=== PATIENT | male | born 1995 | race Caucasian/White ===

== ENCOUNTER 2019-02-01 09:34 | Emergency (ER) | payer OTHER ==
--- NOTE | 2019-02-01 09:44 | ER Report ---
History and Physical Time Seen By MD: 09:43 HPI/ROS CHIEF COMPLAINT: Right-sided abdominal pain HISTORY OF PRESENT ILLNESS: Patient is a 23-year-old male here with complaints of right-sided abdominal pain with history of appendectomy. Patient complains of nausea, vomiting several episodes since 2:30 this morning. Patient reports constant cramping pain in the right side of the abdomen without distention. Denies blood in the stools or urine. Patient is afebrile, hemodynamically stable at time of evaluation. Patient did attempt to drink water however he subsequently vomited after every attempt. REVIEW OF SYSTEMS: Constitutional: No fever, no chills. Eyes: No discharge. ENT: No sore throat. Cardiovascular: No chest pain, no palpitations. Respiratory: No cough, no shortness of breath. Gastrointestinal: + Right sided abdominal pain, + nausea and vomiting. Genitourinary: No hematuria. Musculoskeletal: No back pain. Skin: No rashes. Neurological: No headache. Allergies: Coded Allergies: No Known Drug Allergies (Unverified , 02/01/19) Home Meds Active Scripts Ondansetron 4 Mg Odt (ONDANSETRON 4 MG ODT) 4 Mg Tab.rapdis, 4 MG PO ONCE, #30 TAB Prov:JOCY SLOAN DO 02/01/19 Constitutional Vital Sign - Last 24 Hours 02/01/19 02/01/19 02/01/19 02/01/19 09:45 09:46 09:54 09:59 Temp 97.9 Pulse 100 98 86 B/P (MAP) 127/91 127/91 (103) Pulse Ox 93 90 97 O2 Delivery Room Air 02/01/19 02/01/19 02/01/19 02/01/19 10:00 10:04 10:09 10:14 Pulse 83 84 82 B/P (MAP) 123/112 (116) Pulse Ox 100 97 99 02/01/19 02/01/19 02/01/19 02/01/19 10:19 10:24 10:29 10:30 Pulse 76 74 85 B/P (MAP) 113/76 (88) Pulse Ox 97 95 97 02/01/19 02/01/19 02/01/19 02/01/19 10:34 10:39 10:49 10:54 Pulse 86 86 88 89 Pulse Ox 95 94 91 90 02/01/19 02/01/19 02/01/19 02/01/19 10:59 11:04 11:30 12:00 Pulse ??? B/P (MAP) 123/68 (86) 115/75 (88) Pulse Ox 92 Physical Exam General Appearance: The patient is alert, has no immediate need for airway protection and no signs of toxicity. Uncomfortable appearing Eyes: Pupils equal and round no pallor or injection. ENT, Mouth: Mucous membranes are moist. Respiratory: There are no retractions, lungs are clear to auscultation. Cardiovascular: Regular rate and rhythm. Gastrointestinal: Abdomen is soft and + tender in the right upper and right middle abdomen without rebound or guarding Neurological: No focal neurological deficits Skin: Warm and dry, no rashes. Musculoskeletal: Neck is supple non tender. Extremities are nontender, nonswollen and have full range of motion. DIFFERENTIAL DIAGNOSIS: After history and physical exam differential diagnosis was considered for abdominal pain including but not limited to appendicitis, cholecystitis, gastritis and urinary tract infection. Medical Decision Making Data Points Result Diagram: 02/01/19 1013 02/01/19 1013 Laboratory Hematology Test 02/01/19 10:13 02/01/19 12:22 Red Blood Count 6.17 M/uL (4.00-5.60) Mean Corpuscular Volume 85.1 fL (80.0-96.0) Mean Corpuscular Hemoglobin 28.9 pg (26.0-33.0) Mean Corpuscular Hemoglobin Concent 33.9 g/dL (32.0-36.0) Red Cell Distribution Width 12.9 % (11.5-14.5) Mean Platelet Volume 8.0 fL (7.2-11.1) Neutrophils (%) (Auto) 92.6 % (39.4-72.5) Lymphocytes (%) (Auto) 2.7 % (17.6-49.6) Monocytes (%) (Auto) 4.0 % (4.1-12.4) Eosinophils (%) (Auto) 0.5 % (0.4-6.7) Basophils (%) (Auto) 0.2 % (0.3-1.4) Nucleated RBC Relative Count (auto) 0.1 /100WBC Neutrophils # (Auto) 13.4 K/uL (2.0-7.4) Lymphocytes # (Auto) 0.4 K/uL (1.3-3.6) Monocytes # (Auto) 0.6 K/uL (0.3-1.0) Eosinophils # (Auto) 0.1 K/uL (0.0-0.5) Basophils # (Auto) 0.0 K/uL (0.0-0.1) Nucleated RBC Absolute Count (auto) 0.02 K/uL Sodium Level 141 mmol/L (137-145) Potassium Level 4.3 mmol/L (3.5-5.0) Chloride Level 105 mmol/L (98-107) Carbon Dioxide Level 27 mmol/L (22-30) Blood Urea Nitrogen 14 mg/dl (9-21) Creatinine 1.30 mg/dl (0.66-1.25) Glomerular Filtration Rate Calc > 60.0 Random Glucose 103 mg/dl (75-110) Calcium Level 10.2 mg/dl (8.4-10.2) Total Bilirubin 0.8 mg/dl (0.2-1.3) Aspartate Amino Transf (AST/SGOT) 31 U/L (0-35) Alanine Aminotransferase (ALT/SGPT) 35 U/L (0-56) Alkaline Phosphatase 86 U/L (0-126) C-Reactive Protein 0.7 mg/dl (<1.0) Total Protein 8.4 g/dl (6.3-8.2) Albumin 4.9 g/dl (3.5-5.0) Lipase 148 U/L (23-300) Urine Color Straw Urine Clarity Clear Urine pH 6.0 pH (4.8-9.5) Urine Specific [place] >1.060 Urine Protein Negative mg/dL (NEGATIVE) Urine Glucose (UA) Negative mg/dL (NEGATIVE) Urine Ketones 20 mg/dL (NEGATIVE) Urine Blood Negative (NEGATIVE) Urine Nitrite Negative (NEGATIVE) Urine Bilirubin Negative (NEGATIVE) Urine Urobilinogen Negative mg/dL (0.2-1.9) Urine Leukocyte Esterase Negative (NEGATIVE) Urine RBC <1 /HPF (0-2/HPF) Urine WBC <1 /HPF (0-5/HPF) Urine Squamous Epithelial Cells None /LPF (</=FEW) Urine Bacteria Negative /HPF (NONE-FEW) Urine Mucus None /HPF (NONE-FEW) Chemistry Test 5/11/19 10:13 02/01/19 12:22 White Blood Count 14.5 k/uL (4.5-11.0) Red Blood Count 6.17 M/uL (4.00-5.60) Hemoglobin 17.8 g/dL (14.0-18.0) Hematocrit 52.5 % (42.0-52.0) Mean Corpuscular Volume 85.1 fL (80.0-96.0) Mean Corpuscular Hemoglobin 28.9 pg (26.0-33.0) Mean Corpuscular Hemoglobin Concent 33.9 g/dL (32.0-36.0) Red Cell Distribution Width 12.9 % (11.5-14.5) Platelet Count 249 K/uL (150-450) Mean Platelet Volume 8.0 fL (7.2-11.1) Neutrophils (%) (Auto) 92.6 % (39.4-72.5) Lymphocytes (%) (Auto) 2.7 % (17.6-49.6) Monocytes (%) (Auto) 4.0 % (4.1-12.4) Eosinophils (%) (Auto) 0.5 % (0.4-6.7) Basophils (%) (Auto) 0.2 % (0.3-1.4) Nucleated RBC Relative Count (auto) 0.1 /100WBC Neutrophils # (Auto) 13.4 K/uL (2.0-7.4) Lymphocytes # (Auto) 0.4 K/uL (1.3-3.6) Monocytes # (Auto) 0.6 K/uL (0.3-1.0) Eosinophils # (Auto) 0.1 K/uL (0.0-0.5) Basophils # (Auto) 0.0 K/uL (0.0-0.1) Nucleated RBC Absolute Count (auto) 0.02 K/uL Glomerular Filtration Rate Calc > 60.0 Calcium Level 10.2 mg/dl (8.4-10.2) Total Bilirubin 0.8 mg/dl (0.2-1.3) Aspartate Amino Transf (AST/SGOT) 31 U/L (0-35) Alanine Aminotransferase (ALT/SGPT) 35 U/L (0-56) Alkaline Phosphatase 86 U/L (0-126) C-Reactive Protein 0.7 mg/dl (<1.0) Total Protein 8.4 g/dl (6.3-8.2) Albumin 4.9 g/dl (3.5-5.0) Lipase 148 U/L (23-300) Urine Color Straw Urine Clarity Clear Urine pH 6.0 pH (4.8-9.5) Urine Specific [place] >1.060 Urine Protein Negative mg/dL (NEGATIVE) Urine Glucose (UA) Negative mg/dL (NEGATIVE) Urine Ketones 20 mg/dL (NEGATIVE) Urine Blood Negative (NEGATIVE) Urine Nitrite Negative (NEGATIVE) Urine Bilirubin Negative (NEGATIVE) Urine Urobilinogen Negative mg/dL (0.2-1.9) Urine Leukocyte Esterase Negative (NEGATIVE) Urine RBC <1 /HPF (0-2/HPF) Urine WBC <1 /HPF (0-5/HPF) Urine Squamous Epithelial Cells None /LPF (</=FEW) Urine Bacteria Negative /HPF (NONE-FEW) Urine Mucus None /HPF (NONE-FEW) Urinalysis Test 02/01/19 12:22 Urine Color Straw Urine Clarity Clear Urine pH 6.0 pH (4.8-9.5) Urine Specific [place] >1.060 Urine Protein Negative mg/dL (NEGATIVE) Urine Glucose (UA) Negative mg/dL (NEGATIVE) Urine Ketones 20 mg/dL (NEGATIVE) Urine Blood Negative (NEGATIVE) Urine Nitrite Negative (NEGATIVE) Urine Bilirubin Negative (NEGATIVE) Urine Urobilinogen Negative mg/dL (0.2-1.9) Urine Leukocyte Esterase Negative (NEGATIVE) Urine RBC <1 /HPF (0-2/HPF) Urine WBC <1 /HPF (0-5/HPF) Urine Squamous Epithelial Cells None /LPF (</=FEW) Urine Bacteria Negative /HPF (NONE-FEW) Urine Mucus None /HPF (NONE-FEW) EKG/Imaging Imaging PATIENT NAME: Antonio Grissom : 1995 MR: [id number] V: [id number] EXAM DATE: [id number] ORDERING PHYSICIAN: JOCY SLOAN TECHNOLOGIST: Location: [facility] Patient: Antonio Grissom : 1995 Visit/Account:[id number] Date of Sevice: 02/01/2019 Study: CT scan of the abdomen and pelvis with intravenous contrast Indication: Right-sided abdominal pain Comparison study: None Contrast used: 80 mL Isovue-370 Technique: Multiple axial images were obtained through the abdomen and pelvis following intravenous administration of iodinated contrast. Coronal and sagittal two-dimensional reconstructions were made from the original data set. One of the following dose optimization techniques was utilized in the performance of this exam: Automated exposure control; adjustment of the mA and/or kV according to the patient's size; or use of an iterative reconstruction technique. Specific details can be referenced in the facility's radiology CT exam operational policy. Findings: Lung bases: Unremarkable Liver: Unremarkable Spleen: Unremarkable Gallbladder: Unremarkable Stomach: Unremarkable Small bowel:The small bowel is unremarkable in appearance. Large bowel: There is diverticulosis of the sigmoid colon noted. There is no evidence of diverticulitis. The patient is status post appendectomy. Pancreas: Unremarkable Adrenal glands: Unremarkable Kidneys: Unremarkable Retroperitoneum: Unremarkable Pelvis: Unremarkable Bony structures: Unremarkable IMPRESSION: Unremarkable CT scan of the abdomen and pelvis with intravenous contrast. ED Course/Re-evaluation ED Course Patient is a 23-year-old male here with complaints of nausea, vomiting, right- sided abdominal pain with a prior history of an appendectomy. Patient reports that pain started approximately 2:30 this morning and has been persistent. CT imaging showed no acute findings. Labs were remarkable for a mild leukocytosis of 14,000, mild elevation of creatinine at 1.3 likely prerenal in etiology. Patient's urinalysis was unremarkable. Patient had significant relief of symptoms with normal saline bolus, Zofran. Prescription provided for Zofran. PCP follow-up recommended. Return precautions provided. Decision to Disposition Date: February 01, 2019 Decision to Disposition Time: 12:16 Depart Departure Latest Vital Signs Vital Signs Date Time Temp Pulse Resp B/P (MAP) Pulse Ox O2 Delivery O2 Flow Rate FiO2 02/01/19 12:00 115/75 (88) 02/01/19 11:04 ??? 02/01/19 10:59 92 02/01/19 09:45 97.9 Room Air Impression: Primary Impression: Abdominal pain Additional Impression: Nausea & vomiting Condition: Improved Disposition: HOME OR SELF-CARE New Scripts Ondansetron 4 Mg Odt (ONDANSETRON 4 MG ODT) 4 Mg Tab.rapdis 4 MG PO ONCE, #30 TAB Prov: JOCY SLONA DO 02/01/19 Patient Instructions: Abdominal Pain (ED) Additional Instructions: Please drink plenty of water. You may take 1 tablet of Zofran every 4-6 hours as needed for nausea and vomiting. Please return promptly if you develop worsening abdominal pain, fevers, abdominal distention, decreased urine outputs, inability to keep down food or fluids. Problem Qualifiers JOCY SLOAN DO February 01, 2019 09:44
[2019-02-01] MEDS ORDERED: NS(*) 0.9% 1000 ML BAG 1,000 ML IV ONE ×2 (09:56→10:35)
[2019-02-01] MEDS ORDERED: ONDANSETRON 4 MG/2 ML VIAL IVP ONE (10:00)
[2019-02-01] MEDS ORDERED: KETOROLAC 30 MG/ML VIAL IVP ONE (10:00)
[2019-02-01] MEDS ORDERED: IOPAMIDOL 76% 150 ML INFUS BTL 150 ML ONE (10:13)
[2019-02-01 10:26] LABS: PLATELET COUNT, AUTOMATED 249 K/uL (150-450)
--- NOTE | 2019-02-01 11:50 | RADIOLOGY IMAGING REPORT ---
FACILITY: [facility] [place] PATIENT NAME: Antonio Grissom : 1995 MR: [id number] V: [id number] EXAM DATE: ORDERING PHYSICIAN: JOCY SOLAN TECHNOLOGIST: Location: [facility] Patient: Antonio Grissom : 1995 Visit/Account:[id number] Date of Sevice: 02/01/2019 Study: CT scan of the abdomen and pelvis with intravenous contrast Indication: Right-sided abdominal pain Comparison study: None Contrast used: 80 mL Isovue-370 Technique: Multiple axial images were obtained through the abdomen and pelvis following intravenous a dministration of iodinated contrast. Coronal and sagittal two-dimensional reconstructions were made f rom the original data set. One of the following dose optimization techniques was utilized in the performance of this exam: Autom ated exposure control; adjustment of the mA and/or kV according to the patient's size; or use of an i terative reconstruction technique. Specific details can be referenced in the facility's radiology C T exam operational policy. Findings: Lung bases: Unremarkable Liver: Unremarkable Spleen: Unremarkable Gallbladder: Unremarkable Stomach: Unremarkable Small bowel:The small bowel is unremarkable in appearance. Large bowel: There is diverticulosis of the sigmoid colon noted. There is no evidence of diverticulit is. The patient is status post appendectomy. Pancreas: Unremarkable Adrenal glands: Unremarkable Kidneys: Unremarkable Retroperitoneum: Unremarkable Pelvis: Unremarkable Bony structures: Unremarkable IMPRESSION: Unremarkable CT scan of the abdomen and pelvis with intravenous contrast. Report Dictated By: Adiel Crawford at 02/01/2019 11:35 AM Report E-Signed By: Adiel Crawford at 02/01/2019 11:46 AM WSN:[id number]
[2019-02-01 12:00] VITALS: BP 115/75
[2019-02-01] MEDS ORDERED: ONDA4TAB9 PO (12:14)
== END 2019-02-01 12:53 | disposition home or self-care (01) ==
LOC: ER 09:50
DX: R10.11 Right upper quadrant pain (principal); R11.2 Nausea with vomiting, unspecified
CPT/HCPCS: 74177; 81001; 83690; 85025; 86140; 96361; 96374; 96375; 99284; J1885; J2405; J7030; Q9967; 82040; 82247; 82310; 82374; 82435; 82565; 82947; 84075; 84132; 84155; 84295; 84450; 84460; 84520